=== PATIENT | female | born 1940 | race African-American/Black ===

== ENCOUNTER 2022-12-02 13:39 | Inpatient (IN) | payer OTHER ==
[2022-12-02 13:47] VITALS: BMI 22.1
[2022-12-02 14:52] LABS: BASO % 0.9 % (0-2.0); EOS % 1.6 % (0-4.5); HEMATOCRIT 35.1 % (32.4-45.2); HEMOGLOBIN 11.8 GM/dL (10.7-15.3); LYMPH % 32.3 % (8-40); MCH 30.1 pg (25.7-33.7); MCHC 33.6 g/dl (32.0-36.0); MEAN CELL VOLUME 89.6 fl (80-96); MEAN PLT VOLUME 7.1 fl (7.5-11.1); MONO % 8.5 % (3.8-10.2); NEUT % 56.7 % (42.8-82.8); PLATELET COUNT 326 10^3/uL (134-434); RBC 3.92 M/mm3 (3.60-5.2); RDW 15.2 % (11.6-15.6); WHITE BLOOD COUNT 5.2 K/mm3 (4.0-10.0)
[2022-12-02 15:00] LABS: INR 1.04 (0.83-1.09); PROTHROMBIN TIME (PATIENT) 12.1 SEC (9.7-13.0)
[2022-12-02 15:02] LABS: ACTIVATED PTT 32.7 SECONDS (25.2-36.5)
[2022-12-02 15:20] LABS: ALBUMIN 3.3 g/dl (3.4-5.0); BLOOD UREA NITROGEN 16.5 mg/dL (7-18); CALCIUM 9.4 mg/dL (8.5-10.1)
[2022-12-02 15:23] LABS: CREATININE 0.9 mg/dL (0.55-1.3)
[2022-12-02 15:25] LABS: TOT PROT 7.4 g/dl (6.4-8.2)
[2022-12-02] MEDS ORDERED: ATORVASTATIN CA 80 MG TABLET (FP) PO ONE (18:05)
[2022-12-02] MEDS ORDERED: ASPIRIN 81 MG CHEWABLE TABLETS PO ONE (18:05)
[2022-12-02] MEDS ORDERED: SODIUM CHLORIDE 1,000 ML IV SCH (19:00)
[2022-12-02 19:12] LABS: ALBUMIN 3.2 g/dl (3.4-5.0); BLOOD UREA NITROGEN 15.4 mg/dL (7-18); CALCIUM 9.5 mg/dL (8.5-10.1)
[2022-12-02 19:15] LABS: CREATININE 0.9 mg/dL (0.55-1.3)
[2022-12-02] MEDS ORDERED: ASPIRIN 81 MG CHEWABLE TABLETS ONE (19:15)
[2022-12-02] MEDS ORDERED: ATORVASTATIN CA 80 MG TABLET (FP) ONE (19:15)
[2022-12-02 19:17] LABS: BILIRUBIN,TOTAL 0.7 mg/dL (0.2-1); TOT PROT 6.5 g/dl (6.4-8.2)
[2022-12-02] MEDS: ATORVASTATIN CA 80 MG TABLET (FP) PO SCH (21:18)
[2022-12-02] MEDS: INSULIN SLIDING SCALE (NOVOLOG) 1 VIAL SQ SCH (22:35)
[2022-12-02 23:07] LABS: URINE APPEARANCE CLEAR; URINE BILIRUBIN NEGATIVE (NEGATIVE); URINE COLOR YELLOW; URINE GLUCOSE (UA) NEGATIVE (NEGATIVE); URINE KETONE TRACE (NEGATIVE); URINE LEUK ESTERASE NEGATIVE (NEGATIVE); URINE NITRITE NEGATIVE (NEGATIVE); URINE PROTEIN TRACE (NEGATIVE)
[2022-12-03] MEDS: INSULIN SLIDING SCALE (NOVOLOG) 1 VIAL SQ SCH ×4 (06:00→22:06)
[2022-12-03] MEDS: PANTOPRAZOLE 40 MG TABLET PO SCH (09:30)
[2022-12-03] MEDS: ENOXAPARIN NA (PORCINE) 40 MG/0.4 ML DISP.SYRIN SQ SCH (09:31)
[2022-12-03] MEDS: MIRTAZAPINE 15 MG TABLET (FP) PO SCH (09:31)
[2022-12-03] MEDS ORDERED: FAMOTIDINE 20 MG TABLET PO SCH (10:00)
[2022-12-03] MEDS ORDERED: ASPIRIN 81 MG CHEWABLE TABLETS PO SCH (10:00)
[2022-12-03] MEDS ORDERED: ATORVASTATIN CA 80 MG TABLET (FP) PO ONE (10:00)
[2022-12-03 13:16] LABS: EOS % 1.9 % (0-4.5); HEMATOCRIT 35.5 % (32.4-45.2); LYMPH % 33.9 % (8-40); MCH 30.4 pg (25.7-33.7); MCHC 33.8 g/dl (32.0-36.0); MEAN CELL VOLUME 89.9 fl (80-96); MONO % 10.7 % (3.8-10.2); NEUT % 52.5 % (42.8-82.8); PLATELET COUNT 289 10^3/uL (134-434); RBC 3.95 M/mm3 (3.60-5.2); RDW 15.1 % (11.6-15.6); WHITE BLOOD COUNT 6.1 K/mm3 (4.0-10.0)
[2022-12-03 13:40] LABS: MAGNESIUM 1.7 mg/dL (1.8-2.4)
[2022-12-03 13:43] LABS: PHOSPHOROUS 3.7 mg/dL (2.5-4.9)
[2022-12-03] MEDS: ATORVASTATIN CA 80 MG TABLET (FP) PO SCH (22:05)
[2022-12-04] MEDS: INSULIN SLIDING SCALE (NOVOLOG) 1 VIAL SQ SCH ×4 (06:56→21:48)
[2022-12-04 08:17] LABS: BASO % 0.8 % (0-2.0); EOS % 2.2 % (0-4.5); HEMATOCRIT 30.2 % (32.4-45.2); HEMOGLOBIN 10.2 GM/dL (10.7-15.3); LYMPH % 33.6 % (8-40); MCH 30.4 pg (25.7-33.7); MCHC 33.7 g/dl (32.0-36.0); MEAN PLT VOLUME 7.3 fl (7.5-11.1); MONO % 13.5 % (3.8-10.2); NEUT % 49.9 % (42.8-82.8); PLATELET COUNT 253 10^3/uL (134-434); RBC 3.35 M/mm3 (3.60-5.2)
[2022-12-04 08:41] LABS: CALCIUM 9.1 mg/dL (8.5-10.1)
[2022-12-04] MEDS: MIRTAZAPINE 15 MG TABLET (FP) PO SCH (09:32)
[2022-12-04] MEDS: CLOPIDOGREL BISULFATE 75 MG TABLET (FP) PO SCH (09:33)
[2022-12-04] MEDS: ENOXAPARIN NA (PORCINE) 40 MG/0.4 ML DISP.SYRIN SQ SCH (09:33)
[2022-12-04] MEDS: PANTOPRAZOLE 40 MG TABLET PO SCH (09:33)
[2022-12-04 19:48] LABS: HEMATOCRIT 30.3 % (32.4-45.2); HEMOGLOBIN 10.2 GM/dL (10.7-15.3); MCH 30.1 pg (25.7-33.7); MCHC 33.5 g/dl (32.0-36.0); MEAN CELL VOLUME 89.6 fl (80-96); MEAN PLT VOLUME 7.2 fl (7.5-11.1); PLATELET COUNT 250 10^3/uL (134-434); RBC 3.38 M/mm3 (3.60-5.2); WHITE BLOOD COUNT 3.7 K/mm3 (4.0-10.0)
[2022-12-04] MEDS: ATORVASTATIN CA 80 MG TABLET (FP) PO SCH (21:48)
[2022-12-04 23:44] VITALS: RESP 18
[2022-12-05] MEDS: INSULIN SLIDING SCALE (NOVOLOG) 1 VIAL SQ SCH ×4 (06:06→21:33)
[2022-12-05 08:10] LABS: HEMATOCRIT 29.4 % (32.4-45.2); MCH 30.4 pg (25.7-33.7); MCHC 33.9 g/dl (32.0-36.0); MEAN CELL VOLUME 89.6 fl (80-96); MEAN PLT VOLUME 7.1 fl (7.5-11.1); PLATELET COUNT 235 10^3/uL (134-434); RBC 3.28 M/mm3 (3.60-5.2); RDW 14.9 % (11.6-15.6); WHITE BLOOD COUNT 3.4 K/mm3 (4.0-10.0)
[2022-12-05] MEDS: ENOXAPARIN NA (PORCINE) 40 MG/0.4 ML DISP.SYRIN SQ SCH (09:10)
[2022-12-05] MEDS: PANTOPRAZOLE 40 MG TABLET PO SCH (09:11)
[2022-12-05] MEDS: MIRTAZAPINE 15 MG TABLET (FP) PO SCH (09:11)
[2022-12-05] MEDS: CLOPIDOGREL BISULFATE 75 MG TABLET (FP) PO SCH (09:11)
[2022-12-05] MEDS: LISINOPRIL 10 MG TABLET PO SCH (15:35)
[2022-12-05] MEDS: ATORVASTATIN CA 80 MG TABLET (FP) PO SCH (21:22)
[2022-12-06] MEDS: INSULIN SLIDING SCALE (NOVOLOG) 1 VIAL SQ SCH ×2 (06:15→12:11)
[2022-12-06] MEDS: LISINOPRIL 10 MG TABLET PO SCH (10:16)
[2022-12-06] MEDS: CLOPIDOGREL BISULFATE 75 MG TABLET (FP) PO SCH (10:16)
[2022-12-06] MEDS: PANTOPRAZOLE 40 MG TABLET PO SCH (10:16)
[2022-12-06] MEDS: ENOXAPARIN NA (PORCINE) 40 MG/0.4 ML DISP.SYRIN SQ SCH (10:17)
[2022-12-06] MEDS: MIRTAZAPINE 15 MG TABLET (FP) PO SCH (10:20)
[2022-12-06 14:14] VITALS: BP 106/68; PULSE 79; TEMP 98.4
== END 2022-12-06 17:15 | DRG 65 ==
LOC: JER 13:39 → JERBED 17:43 → OBSVTOIN 18:23 → J4S 12-03 01:05
PROVIDERS: ADMIT Internal Medicine; ATTEND Internal Medicine
DX: I63.9 Cerebral infarction, unspecified (principal); I69.354 Hemiplegia and hemiparesis following cerebral infarction affecting left non-dominant side; E78.5 Hyperlipidemia, unspecified; E11.9 Type 2 diabetes mellitus without complications; I10 Essential (primary) hypertension; R29.810 Facial weakness; R29.703 NIHSS score 3; G93.89 Other specified disorders of brain
CPT/HCPCS: 36415; 70450-TC; 70496-TC; 70498-TC; 70551-TC; 80048; 80053; 80061; 81003; 82962; 83036; 83735; 84100; 84484; 85025; 85027; 85610; 85730; 86850; 86900; 86901; 93005; 93010; 93306-TC; 93880-TC; 97116-GP; 97161-GP; 99285-25; C9803-CS; G0378; U0003; U0005